=== PATIENT | male | born 1975 | race Caucasian/White ===

== ENCOUNTER → 2021-04-24 | Outpatient (CLI) | payer OTHER | LOC: M.ULTRA 10:15 | PROVIDERS: ATTEND Podiatrist Foot & Ankle Surgery | DX: R59.0 Localized enlarged lymph nodes (principal); I82.409 Acute embolism and thrombosis of unspecified deep veins of unspecified lower extremity ==

== ENCOUNTER → 2021-07-12 | Outpatient (CLI) | payer OTHER | LOC: M.MRI 07-11 14:30 | PROVIDERS: ATTEND Podiatrist | DX: M86.8X7 Other osteomyelitis, ankle and foot (principal) ==